=== PATIENT | male | born 1985 | race African-American/Black ===

== ENCOUNTER 2020-06-19 01:48 | Emergency (ER) | payer MEDICAID, OTHER ==
[~2020-06-19] VITALS: Ht 175.3 cm; Wt 70.3 kg
[2020-06-19] MEDS ORDERED: MORPHINE SULF INJ 2 MG/ML SYRINGE 1ML IM ONE (04:00)
[2020-06-19] MEDS ORDERED: ONDANSETRON ODT 4 MG TAB PO ONE (04:00)
[2020-06-19 04:27] VITALS: BP 112/60
== END 2020-06-19 04:47 | disposition home or self-care (01) ==
LOC: ER 01:50
DX: S62.151A Displaced fracture of hook process of hamate [unciform] bone, right wrist, initial encounter for closed fracture (principal); X58.XXXA Exposure to other specified factors, initial encounter; Y93.89 Activity, other specified; Y92.89 Other specified places as the place of occurrence of the external cause; Y99.8 Other external cause status; S63.262A Dislocation of metacarpophalangeal joint of right middle finger, initial encounter; S63.264A Dislocation of metacarpophalangeal joint of right ring finger, initial encounter
CPT/HCPCS: 29125; 73130; 73200; 96372; 99284; J2270; Q0162